=== PATIENT | female | born 1995 | race Caucasian/White ===

== ENCOUNTER 2021-05-29 23:42 | Emergency (ER) | payer BC, OTHER ==
[2021-05-30 00:14] VITALS: BMI 23.8
[2021-05-30 02:22] LABS: EPI CELLS 10 /uL (0-25.1); HYALINE CASTS 0 /uL (0-3.1); PH,URINE 5.5 (5.0-8.0); URINE APPEARANCE CLEAR; URINE BACTERIA 235 /uL (0-1359); URINE BILIRUBIN NEGATIVE (NEGATIVE); URINE COLOR YELLOW; URINE GLUCOSE (UA) NEGATIVE (NEGATIVE); URINE KETONE NEGATIVE (NEGATIVE); URINE LEUK ESTERASE TRACE (NEGATIVE); URINE NITRITE NEGATIVE (NEGATIVE); URINE PROTEIN NEGATIVE (NEGATIVE); URINE RBC 1 /uL (0-23.9); URINE UROBILINOGEN 0.2 mg/dL (0.2-1.0); URINE WBC 21 /uL (0-25.8)
[2021-05-30 03:50] LABS: BASO % 0.2 % (0-2.0); EOS % 1.7 % (0-4.5); HEMATOCRIT 33.9 % (32.4-45.2); HEMOGLOBIN 11.7 GM/dL (10.7-15.3); LYMPH % 19.3 % (8-40); MCH 30.7 pg (25.7-33.7); MCHC 34.5 g/dl (32.0-36.0); MEAN PLT VOLUME 7.6 fl (7.5-11.1); MONO % 7.2 % (3.8-10.2); NEUT % 71.6 % (42.8-82.8); PLATELET COUNT 293 10^3/uL (134-434); RBC 3.81 M/mm3 (3.60-5.2); RDW 12.2 % (11.6-15.6); WHITE BLOOD COUNT 8.9 K/mm3 (4.0-10.0)
[2021-05-30 04:13] LABS: CALCIUM 8.8 mg/dL (8.5-10.1)
[2021-05-30 04:16] LABS: BILIRUBIN,DIRECT 0.1 mg/dL (0.0-0.2); CREATININE 0.8 mg/dL (0.55-1.3)
[2021-05-30 04:17] LABS: BILIRUBIN,TOTAL 0.3 mg/dL (0.2-1)
[2021-05-30 04:18] LABS: TOT PROT 6.8 g/dl (6.4-8.2)
[2021-05-30 05:49] VITALS: BP 115/69; PULSE 69; TEMP 98.7
== END 2021-05-30 06:31 | disposition home or self-care (01) ==
LOC: JER 23:42
DX: N83.201 Unspecified ovarian cyst, right side (principal); R10.84 Generalized abdominal pain
CPT/HCPCS: 36415; 74177-TC; 80053; 80076; 81003; 83690; 84703; 85025; 87086; 99285-25

== ENCOUNTER 2023-04-13 15:07 | Emergency (ER) | payer BC, OTHER ==
[2023-04-13 15:40] VITALS: BP 95/50; PULSE 78; RESP 20; TEMP 98.3; BMI 27.1
[2023-04-13] MEDS ORDERED: ACETAMINOPHEN 500 MG TABLET (FP) PO ONE (15:50)
[2023-04-13] MEDS ORDERED: predniSONE 20 MG TABLET (UD) PO ONE (15:51)
[2023-04-13] MEDS ORDERED: predniSONE 20 MG TABLET (UD) ONE (16:01)
[2023-04-13] MEDS ORDERED: ACETAMINOPHEN 500 MG TABLET (FP) ONE (16:01)
[2023-04-13 16:19] LABS: BASO % 0.2 % (0-2.0); EOS % 1.8 % (0-4.5); HEMATOCRIT 39.2 % (32.4-45.2); HEMOGLOBIN 13.1 GM/dL (10.7-15.3); LYMPH % 13.1 % (8-40); MCH 29.5 pg (25.7-33.7); MCHC 33.5 g/dl (32.0-36.0); MEAN CELL VOLUME 88.1 fl (80-96); MEAN PLT VOLUME 7.7 fl (7.5-11.1); MONO % 6.3 % (3.8-10.2); NEUT % 78.6 % (42.8-82.8); PLATELET COUNT 341 10^3/uL (134-434); RBC 4.45 M/mm3 (3.60-5.2); RDW 12.7 % (11.6-15.6); WHITE BLOOD COUNT 8.7 K/mm3 (4.0-10.0)
[2023-04-13 16:45] LABS: CHLORIDE 105 mmol/L (98-107); POTASSIUM 4.3 mmol/L (3.5-5.1); SODIUM 138 mmol/L (136-145)
[2023-04-13 16:47] LABS: CALCIUM 9.4 mg/dL (8.5-10.1)
[2023-04-13 16:48] LABS: ALBUMIN 4.5 g/dl (3.4-5.0); ANION GAP 7 mmol/L (4-13); BLOOD UREA NITROGEN 17.3 mg/dL (7-18); CO2 26 mmol/L (21-32); GLUCOSE,RANDOM 78 mg/dL (74-106)
[2023-04-13 16:51] LABS: CREATININE 0.8 mg/dL (0.55-1.3); SGOT/AST 14 U/L (15-37); SGPT/ALT 15 U/L (13-61)
[2023-04-13 16:53] LABS: BILIRUBIN,TOTAL 0.4 mg/dL (0.2-1); TOT PROT 7.4 g/dl (6.4-8.2)
[2023-04-13 16:54] LABS: ALK PHOS 72 U/L (45-117)
[2023-04-13] MEDS ORDERED: KETOROLAC TROMETHAMINE 30 MG/1 ML VIAL IM ONE (16:59)
[2023-04-13] MEDS ORDERED: KETOROLAC TROMETHAMINE 30 MG/1 ML VIAL ONE (17:01)
[2023-04-13 17:09] LABS: ERYTHROCYTE SEDIMENTATION RATE 3 mm/hr (0-20)
[2023-04-13 18:39] LABS: URIC ACID 2.2 mg/dL (2.6-7.2)
== END 2023-04-13 17:48 | disposition home or self-care (01) ==
LOC: JER 15:07 → JERFT 15:07
PROC: 3E0233Z Introduction of Anti-inflammatory into Muscle, Percutaneous Approach (ICD-10-PCS; principal; 2023-04-13)
DX: R22.31 Localized swelling, mass and lump, right upper limb (principal); M25.531 Pain in right wrist
CPT/HCPCS: 36415; 73110-TC-RT-FY; 73130-TC-RT-FY; 80053; 84550; 84703; 85025; 85651; 86140; 86235; 86431; 99284-25